=== PATIENT | male | born 1980 | race Two or more races ===

== ENCOUNTER 2024-04-06 04:53 | Emergency (ER) | payer BC ==
[2024-04-06] MEDS: Amoxicillin 500 MG Cap PO ONE (05:07)
[2024-04-06] MEDS: Ibuprofen 600 MG Tab PO ONE (05:07)
== END 2024-04-06 05:15 | disposition home or self-care (01) ==
LOC: MW.ED 04:53
DX: K05.10 Chronic gingivitis, plaque induced (principal); Z79.899 Other long term (current) drug therapy; Z75.8 Other problems related to medical facilities and other health care
CPT/HCPCS: 99282; A9270